=== PATIENT | male | born 1990 | race Caucasian/White ===

== ENCOUNTER 2018-02-26 16:47 | Emergency (ER) | payer OTHER ==
[2018-02-26] MEDS ORDERED: Fluorescein Opthalmic Strip ONE (18:15)
[2018-02-26] MEDS ORDERED: Proparacaine 0.5% Opth 15 ML BOT ONE (18:15)
== END 2018-02-26 19:22 | disposition home or self-care (01) ==
LOC: ERS 16:47
DX: S05.01XA Injury of conjunctiva and corneal abrasion without foreign body, right eye, initial encounter (principal); X58.XXXA Exposure to other specified factors, initial encounter; Y99.0 Civilian activity done for income or pay
CPT/HCPCS: 99283